=== PATIENT | male | born 1955 | race Caucasian/White ===

== ENCOUNTER 2023-04-15 08:34 | Outpatient (CLI) | payer MEDICARE, SELFPAY ==
--- NOTE | 2023-04-15 | ECG_ITS ---
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 Interpretive Statements NAME OF STUDY: EXERCISE SESTAMIBI STRESS TEST INDICATION: Chest Pain PROCEDURE: The baseline electrocardiogram showed [normal sinus rhythm with Right bundle branch block pattern.. At the baseline, the patient's blood pressure was 153/87 mm Hg with a heart rate of 75 bpm The patient exercised for 5 on a standard Gary protocol. Patient attained a maximum heart rate of 140 beats per minute(93% of the maximum predicted heart rate) with a blood pressure at the peak exercise of 147/54 mm Hg. The EKG at the peak exercise revealed no significant changes. Patient did not have any chest pain or any significant arrhythmis with the exercise Sestamibi was injected 1 minute prior to the peak exercise During the recovery phase, there were no new changes. Blood pressure at the end of the recovery phase was 163/67 mm Hg with a heart rate of 90 per minute. CONCLUSION: 1. No significant EKG changes with the [treadmill exercise 2. No exercise-induced chest pain or cardiac arrhythmia 3. Somewhat impaired exercise tolerance, attained a maximum of 7.0 METs 4. Sestamibi/Sestamibi perfusion results pending; see separate report. Electronically Signed On 04-21-2023 18:01:44 PLASTIC PANEL INSTALLER by Roberto Humphrey M.D. [id number]
[2023-04-15 08:44] VITALS: BMI 29.9
--- NOTE | 2023-04-15 09:08 | NMCV_ITS ---
NM katy perf SPECT r/s* [id number] Jin Terry Age: 67 Gender: M : 1955 Exam Date: 04/15/2023 10:03 Ordering Phys: Aime Robins MD Technologist: JARED Horvath Exam Location: [facility] Indications: CHEST PAIN STRESS TEST Please see separate stress test report in [facility] for full findings IMAGE PROTOCOL Rest/Stress 1 Exercise Day Radiopharmaceutical Dose (mCi) Administration Site Administered by Rest: Tc-99m 11.0 IV JARED Tello Sestamijoan Stress:Tc-99m 32.7 IV JARED Tello Sestamijoan Rest: 15-Apr-2023 60 Discovery 630 Stress: 15-Apr-2023 30 Discovery 630 Radiopharmaceutical was injected at 85 % maximum heart rate. Images obtained in supine and prone position. SPECT RESULTS Technical Quality: Excellent Raw Data Analysis: Normal Image Corrections: No attenuation or motion correction applied Summed Stress Score: 0 Summed Rest Score: 0 Summed Difference Score: 0 PERFUSION FINDINGS SPECT images demonstrate homogeneous tracer distribution throughout the myocardium. FUNCTIONAL RESULTS (calculated via Gated SPECT) Stress Image LV EF (%): 78 Stress EDV (mL):60 TID: 0.65 Stress ESV (mL):13 FUNCTIONAL FINDINGS: There is normal left ventricular systolic function. IMPRESSIONS 1. Normal myocardial perfusion imaging with no evidence of ischemia 2. LV systolic function is normal Diogo Leung MD (Electronically Signed) Final Date: 15 April 2023 16:04 S
[2023-04-15 11:18] VITALS: BP 163/67; PULSE 90
== END 2023-04-15 08:35 | disposition home or self-care (01) ==
PROVIDERS: PCP Family Medicine; Visit Provider Family Medicine
DX: R07.9 Chest pain, unspecified (principal)
CPT/HCPCS: 36415; 78452; 93017; A9500